=== PATIENT | female | born 1945 | race Caucasian/White ===

== ENCOUNTER → 2023-08-21 | Outpatient (CLI) | payer OTHER ==
[2023-08-21 14:30] LABS: BASO % 0.2 % (0.0-1.0); EOS % 0.7 % (1.0-4.0); HEMATOCRIT 37.2 % (37.0-47.0); LYMPH # 0.9 10*3/uL (1.3-4.4); LYMPH % 14.9 % (27.0-41.0); MEAN CELL VOLUME 99.2 fl (81.0-99.0); MEAN CORPUSCULAR HGB 29.3 pg (27.0-31.0); MEAN CORPUSCULAR HGB CONC 29.6 g/dl (33.0-37.0); MEAN PLATELET VOLUME 9.9 fl (9.6-12.3); MONO # 0.5 10*3/uL (0.1-1.0); MONO % 7.4 % (3.0-9.0); NEUT # 4.6 10*3/uL (2.3-7.9); NEUT % 76.3 % (47.0-73.0); PLATELET COUNT AUTOMATED 161 10*3/uL (130-400); RED BLOOD COUNT 3.75 10*6/uL (4.10-5.10); RED CELL DISTRI WIDTH 14.2 % (0-14.5); WHITE BLOOD COUNT 6.1 10*3/uL (4.8-10.8)
[2023-08-21 15:11] LABS: POTASSIUM 4.6 mmol/L (3.4-5.1); TOTAL PROTEIN 6.1 gm/dL (6.0-8.0)
== END | disposition home or self-care (01) ==
LOC: LAB 13:57
PROVIDERS: ATTEND Family Medicine
DX: M19.031 Primary osteoarthritis, right wrist (principal); E87.5 Hyperkalemia; M53.3 Sacrococcygeal disorders, not elsewhere classified; M25.531 Pain in right wrist; G93.41 Metabolic encephalopathy

== ENCOUNTER 2023-09-04 14:51 | Inpatient (IN) | payer OTHER ==
[2023-09-04 15:30] VITALS: BP 164/67
[2023-09-04] MEDS ORDERED: ACETAMINOPHEN 325 MG TAB PO ONE (17:40)
[2023-09-04 18:15] LABS: BASO % 0.2 % (0.0-1.0); EOS # 0.1 10*3/uL (0.0-0.4); EOS % 1.1 % (1.0-4.0); HEMATOCRIT 37.6 % (37.0-47.0); LYMPH # 1.2 10*3/uL (1.3-4.4); LYMPH % 22.3 % (27.0-41.0); MEAN CELL VOLUME 99.5 fl (81.0-99.0); MEAN CORPUSCULAR HGB 29.4 pg (27.0-31.0); MEAN CORPUSCULAR HGB CONC 29.5 g/dl (33.0-37.0); MEAN PLATELET VOLUME 10.2 fl (9.6-12.3); MONO # 0.4 10*3/uL (0.1-1.0); MONO % 7.2 % (3.0-9.0); NEUT # 3.6 10*3/uL (2.3-7.9); PLATELET COUNT AUTOMATED 142 10*3/uL (130-400); RED BLOOD COUNT 3.78 10*6/uL (4.10-5.10); WHITE BLOOD COUNT 5.3 10*3/uL (4.8-10.8)
[2023-09-04 18:32] LABS: POTASSIUM 4.5 mmol/L (3.4-5.1)
[2023-09-13] MEDS ORDERED: TRAMADOL HCL50 MG PO (09:07)
[2023-09-13] MEDS ORDERED: AMLODIPINE BESYL5 MG PO (09:10)
[2023-09-13] MEDS ORDERED: PROPAFENONE HC225 MG PO (09:10)
[2023-09-13] MEDS ORDERED: CITALOPRAM20 MG PO (09:11)
[2023-09-13] MEDS ORDERED: B121000 MCG/1 IM (09:12)
[2023-09-13] MEDS ORDERED: NITROGLYCERIN0.4 MG SL (09:13)
[2023-09-13] MEDS ORDERED: CLOPIDOGREL75 MG PO (09:13)
[2023-09-13] MEDS ORDERED: ROSUVASTATIN CA20 MG PO (09:13)
[2023-09-13] MEDS ORDERED: LEVOTHYROXINE50 MCG PO (09:14)
[2023-09-13] MEDS ORDERED: PANTOPRAZOLE SO40 MG PO (09:14)
== END 2023-09-04 20:59 | disposition left against medical advice (07) | DRG 563 ==
LOC: ED 14:51 → EDHOLD 18:26
PROVIDERS: Emergency Medicine; ADMIT Internal Medicine; ATTEND Internal Medicine
DX: S52.614A Nondisplaced fracture of right ulna styloid process, initial encounter for closed fracture (principal); I25.10 Atherosclerotic heart disease of native coronary artery without angina pectoris; N18.32 Chronic kidney disease, stage 3b; Z53.29 Procedure and treatment not carried out because of patient's decision for other reasons; M19.90 Unspecified osteoarthritis, unspecified site; Z90.49 Acquired absence of other specified parts of digestive tract; Z85.038 Personal history of other malignant neoplasm of large intestine; Z79.899 Other long term (current) drug therapy; Z79.2 Long term (current) use of antibiotics; W18.39XA Other fall on same level, initial encounter; Y93.89 Activity, other specified; Y92.89 Other specified places as the place of occurrence of the external cause; Y99.8 Other external cause status